=== PATIENT | female | born 1955 | race Caucasian/White ===

== ENCOUNTER → 2016-08-26 | Outpatient (CLI) | payer BC ==
[~2016-08-26] MED LIST: BUPR150T7 PO; OLME40TA30 PO
[2016-08-26 13:35] LABS: ALT/SGPT 29 U/L (12-78); BLOOD UREA NITROGEN 20 mg/dl (7-18); BUN/CREATININE RATIO 26.1 (10-20); CALCIUM 9.4 mg/dl (8.5-10.1); CARBON DIOXIDE 28 mmol/L (21-32); CHLORIDE 103 mmol/L (98-107); CHOLESTEROL 227 mg/dl (0-200); CREATININE 0.77 mg/dl (0.60-1.20); GLUCOSE 79 mg/dl (70-99); POTASSIUM 4.4 mmol/L (3.5-5.1); SODIUM 137 mmol/L (136-145)
[2016-08-26 13:38] LABS: ALB/GLOB RATIO 1.1 (0.9-2); ALKALINE PHOSPHATASE 119 U/L (45-117); AST/SGOT 20 U/L (15-37); HDL CHOLESTEROL 114 mg/dl; LDL CHOLESTEROL CALCULATED 103 mg/dl; TRIGLYCERIDES 49 mg/dl (0-150); VERY LOW DENSITY LIPOPROT CALC 10 mg/dl
[2016-08-26 13:44] LABS: BASO % 0.4 %; BASO ABS # 0.02 K/uL (0-0.2); COMPLETE YES; EOS % 2.7 %; HEMATOCRIT 38.8 % (37-47); IG% 0.2 %; LYMPH % 35.9 %; LYMPH ABS # 1.72 K/uL (1.2-3.4); MEAN CELL VOLUME 92.2 fL (80-100); MEAN CORPUSCULAR HEMOGLOBIN 31.4 pg (25-34); MEAN PLATELET VOLUME 11.1 fL (7.4-10.4); MONO % 13.2 %; NEUT % 47.6 %; PLATELET COUNT 230 K/uL (130-400); RED BLOOD COUNT 4.21 M/uL (4.2-5.4); WHITE BLOOD COUNT 4.79 K/uL (4.8-10.8)
== END | disposition home or self-care (01) ==
LOC: C.LABBC 11:43
PROVIDERS: ATTEND Family Medicine
DX: Z00.00 Encounter for general adult medical examination without abnormal findings (principal); E78.5 Hyperlipidemia, unspecified; F41.8 Other specified anxiety disorders; E55.9 Vitamin D deficiency, unspecified

== ENCOUNTER → 2016-09-22 | Outpatient (CLI) | payer BC | END | disposition home or self-care (01) | LOC: C.PAPS 16:41 | PROVIDERS: ATTEND Nurse Practitioner Adult Health | DX: Z01.419 Encounter for gynecological examination (general) (routine) without abnormal findings (principal) ==

== ENCOUNTER → 2017-10-03 | Outpatient (CLI) | payer BC ==
--- NOTE | 2017-10-03 11:12 | DIAGNOSTIC IMAGING REPORT ---
R KNEE 1 OR 2 VIEWS ROUTINE CLINICAL HISTORY: 62 years-old Female presenting with M25.561 Right knee pain R, right knee swelling. TECHNIQUE: Frontal and lateral views of the right knee were obtained. COMPARISON: 06/09/2015. FINDINGS: The knee joint is congruent with preserved joint space. Minimal osteophytosis in the medial compartment and patellofemoral compartment. No acute fracture or malalignment. No advanced degenerative change. Trace knee joint effusion suggested. IMPRESSION: 1. Minimal degenerative change in the medial and patellofemoral compartments similar to prior exam. 2. Trace knee joint effusion. 3. No acute osseous injury. Electronically signed by: Jose Smith M.D. 10/03/2017 11:11 AM Dictated Date/Time: 10/03/2017 11:10 AM
[2017-10-03 14:19] LABS: ALT/SGPT 27 U/L (12-78); AST/SGOT 17 U/L (15-37); BLOOD UREA NITROGEN 19 mg/dl (7-18); CALCIUM 9.2 mg/dl (8.5-10.1); CARBON DIOXIDE 27 mmol/L (21-32); CREATININE 0.75 mg/dl (0.60-1.20); GLUCOSE 77 mg/dl (70-99); POTASSIUM 4.2 mmol/L (3.5-5.1); SODIUM 136 mmol/L (136-145)
[2017-10-03 14:21] LABS: ALKALINE PHOSPHATASE 110 U/L (45-117); CHOLESTEROL 208 mg/dl (0-200); LDL CHOLESTEROL CALCULATED 96 mg/dl; TOTAL PROTEIN 7.6 gm/dl (6.4-8.2)
== END | disposition home or self-care (01) ==
LOC: C.RADBC 10:15
PROVIDERS: ATTEND Nurse Practitioner Adult Health
DX: Z11.59 Encounter for screening for other viral diseases (principal); E78.5 Hyperlipidemia, unspecified; I10 Essential (primary) hypertension; E55.9 Vitamin D deficiency, unspecified; M25.561 Pain in right knee

== ENCOUNTER → 2018-01-09 | Outpatient (CLI) | payer BC ==
[~2018-01-09] MED LIST changes: +CEPH500C2 PO
--- NOTE | 2018-01-10 13:37 | MAMMOGRAPHY REPORT ---
BILATERAL DIGITAL SCREENING MAMMOGRAM TOMOSYNTHESIS WITH CAD: 01/09/2018 CLINICAL HISTORY: Routine screening. Patient has no complaints. TECHNIQUE: Bilateral CC and MLO views of the breasts with and without implant displacement views were obtained. Tomosynthesis was also performed on the implant displaced views. Current study was also evaluated with a Computer Aided Detection (CAD) system. COMPARISON: Comparison is made to exams dated: 08/18/2015 mammogram - [facility], mammogram, 08/03/2012 mammogram, 06/10/2011 mammogram, 11/27/2009 mammogram, and 10/22/2008 mammog franny - [facility]. BREAST COMPOSITION: The tissue of both breasts is extremely dense, which lowers the sensitivity of ma mmography. FINDINGS: The lateral subpectoral saline implants are intact. There is a stable benign rim calcifica tion in the left breast. No suspicious mass, architectural distortion or cluster of microcalcificatio ns is seen. IMPRESSION: ACR BI-RADS CATEGORY 1: NEGATIVE There is no mammographic evidence of malignancy. A 1 year screening mammogram is recommended.( 019) The patient will receive written notification of the results. Some breast cancers are not detected with mammography. A negative mammographic report should not gerry y biopsy if a clinically suggestive mass is present. Trista Alfaro M.D. ay/:01/09/2018 15:55:57 Community Services Officer: RT Yousif(Shonda)(M), [facility] letter sent: Normal 1/2 BI-RADS Code: ACR BI-RADS Category 1: Negative
== END | disposition home or self-care (01) ==
LOC: C.MAMM 13:45
PROVIDERS: ATTEND Nurse Practitioner Adult Health
DX: M85.88 Other specified disorders of bone density and structure, other site (principal); M85.851 Other specified disorders of bone density and structure, right thigh; M85.852 Other specified disorders of bone density and structure, left thigh; Z12.31 Encounter for screening mammogram for malignant neoplasm of breast

== ENCOUNTER 2018-01-10 13:57 | Emergency (ER) | payer BC ==
[~2018-01-10] VITALS: Ht 179.1 cm; Wt 62.8 kg
[~2018-01-10 13:57] MED LIST changes: -CEPH500C2 PO
[2018-01-10 14:09] VITALS: TEMP 36.7; Ht 179.1 cm; Wt 62.8 kg
[2018-01-10] MEDS ORDERED: CEPH500C2 PO (14:42)
[2018-01-10 14:50] VITALS: BP 132/80; PULSE 78; O2SAT 100
--- NOTE | 2018-01-11 06:56 | EMERGENCY ROOM VISIT NOTE ---
ED Visit Note First contact with patient: 14:23 Chief Complaint: I have a right ingrown toenail on my big toe. History of Present Illness: Ms. Kirby is a 62-year-old white female who ambulates into the ED complaining of a right great toe ingrown toenail. Historically patient reports she has had a previous ingrown toenail on the right great toe. She was seen by a optical effects camera operator and had a partial removal of her great toenail. She then reports that was complicated when a secondary infection occurred. She needed to be on antibiotics and eventually cleared up. This was approximately 5 years ago. She reports she started noting some mild increasing redness and swelling approximately 2 weeks ago. At that time her pain was minimal and she was feeling well. Over the last 2 days she reports she had a dramatic increase in redness and swelling of the great toe as well as pain. She does report that she was soaking her toe and noticed when she tried to remove the skin off the nailbed there was a small amount of purulent drainage last night. Currently she is describing a throbbing discomfort in the great toe. Currently she rates her discomfort 10/10. Her pain is nonradiating. Her pain worsens with palpation and ambulation. Her pain is improved with Aleve and rest. She denies any associated symptoms including recent direct trauma to the toe, fevers , chills, sweats, other skin eruptions, other skin color changes, foot/leg weakness/numbness/tingling. Past Medical History: As noted above and supraventricular tachycardia. Current Medications: Benicar, Wellbutrin. Allergies to Medications: Lisinopril. Social History: Patient is currently employed; she feels safe in her home environment; she denies tobacco use. Physical Exam: Vital Signs: Date Time Temp Pulse Resp B/P (MAP) Pulse Ox O2 Delivery O2 Flow Rate FiO2 01/10/18 14:50 78 16 132/80 100 01/10/18 14:09 36.7 86 20 149/89 100 Room Air GENERAL: 62-year-old white female in mild distress due to pain, nontoxic- appearing, afebrile and hemodynamically stable. NEUROLOGICAL: Awake, alert and oriented 3. Answering questions appropriately and following commands. Normal gait. Good hand eye coordination. SKIN: Warm, dry and pink. Right Great Toe: Surrounding the toe there is mild to moderate erythema and mild edema. No lymphangitis. No purulent drainage from the toe or under the nail. No open trauma noted. RIGHT FOOT: Soft tissue injury as noted above under SKIN. No gross bony deformity. Moderate tenderness over her ingrown toenail but no bony deformity or crepitus. Full range of motion at the MTP and interphalangeal joint against resistance. Throughout the great toe the skin was warm and pink and capillary refill is brisk. She is able to distinguish light sensations to all dermatomes. ED Course: Patient is assessed as noted above. Patient's medication list was reviewed. Patient was offered pain medication and refused. I had a lengthy conversation with the patient concerning removal of her ingrown toenail today. Based on her possible active infection but also her previous procedure I felt it was better performed by a optical effects camera operator. She agreed. Patient was offered a postop shoe and refused. Patient was educated about today's findings and instructed on her treatment plan ; she verbalized understanding and agreement with this plan. Clinical impression: Right great toe ingrown toenail. Disposition: Patient discharged home in stable condition; prior to departure she was reassessed and subjectively reported she was feeling better and rated her discomfort 7/10. Plan: Patient was prescribed Keflex 500 mg 4 times a day for 7 days. Patient was encouraged use ibuprofen or acetaminophen as needed for pain. Patient was encouraged to continue to soak her great toe and separate the nail bed from the nail. Patient was encouraged to follow-up with podiatry for definitive care and treatment. Patient was encouraged to return to the ED for worsening signs of infection, uncontrolled pain or any new/concerning symptoms.
== END 2018-01-10 14:53 | disposition home or self-care (01) ==
LOC: C.EDB 13:59 → C.EDD 14:53
DX: L60.0 Ingrowing nail (principal)